=== PATIENT | female | born 1990 | race Native Hawaiian/Other Pacific Islander ===

== ENCOUNTER 2017-06-03 11:46 | Emergency (ER) | payer OTHER ==
[2017-06-03 11:54] VITALS: O2SAT 100
[2017-06-03 12:53] LABS: BASO % 0.5 % (0.0-2.0); EOS # 0.2 K/uL (0.0-0.7); EOS % 2.7 % (0.0-4.0); LYMPH # 1.6 K/uL (1.0-4.3); LYMPH % 20.8 % (20.0-40.0); MEAN CELL VOLUME 96.1 fl (81.0-99.0); MEAN CORPUSCULAR HEMOGLOBIN 32.6 pg (27.0-31.0); MEAN CORPUSCULAR HGB CONC 33.9 g/dL (33.0-37.0); MEAN PLATELET VOLUME 8.1 fl (7.2-11.7); MONO # 0.4 K/uL (0.0-0.8); MONO % 5.2 % (0.0-10.0); NEUT # 5.5 K/uL (1.8-7.0); NEUT % 70.8 % (50.0-75.0); RED CELL DISTRIBUTION WIDTH 12.3 % (11.5-14.5); WHITE BLOOD COUNT 7.8 K/uL (4.8-10.8)
[2017-06-03 13:00] LABS: RBC URINE 3 /hpf (0-3); URINE BACTERIA RARE (<OCC); URINE BILIRUBIN NEGATIVE (NEGATIVE); URINE BLOOD MODERATE (NEGATIVE); URINE COLOR STRAW (YELLOW); URINE GLUCOSE (UA) NEG (Normal); URINE KETONE NEGATIVE (NEGATIVE); URINE LEUKOCYTE ESTERASE MOD Leu/uL (Negative); URINE PROTEIN NEGATIVE (NEGATIVE); URINE UROBILINOGEN 0.2-1.0 mg/dL (0.2-1.0); WBC URINE 4 /hpf (0-5)
[2017-06-03 13:03] LABS: ALB/GLOB RATIO 1.5 (1.0-2.1); ALKALINE PHOSPHATASE 38 U/L (38-126); ALT/SGPT 34 U/L (9-52); AST/SGOT 20 U/L (14-36); BILIRUBIN,TOTAL 0.4 mg/dl (0.2-1.3); BLOOD UREA NITROGEN 9 mg/dl (7-17); CALCIUM 9.1 mg/dL (8.4-10.2); CARBON DIOXIDE 22 mmol/L (22-30); CHLORIDE 105 mmol/L (98-107); GFR AFRICAN-AMERICAN > 60; GLUCOSE,RANDOM 97 mg/dL (65-105); POTASSIUM 3.8 MMOL/L (3.6-5.0); SODIUM 139 mmol/l (132-148); TOTAL PROTEIN 7.9 G/DL (6.3-8.2)
[2017-06-03 13:33] VITALS: RESP 18
--- NOTE | 2017-06-03 15:00 | ED PDOC ---
HPI: Female Pain Time Seen by Provider: 06/03/17 12:41 Chief Complaint (Nursing): Female Genitourinary Chief Complaint (Provider): vaignal bleeding and preg History Per: Patient History/Exam Limitations: no limitations Associated Symptoms: denies: Fever, Chills, Nausea, Vomiting, Diarrhea, Loss Of Appetite, Back Pain, Chest Pain, Constipation, Urinary Symptoms Additional Complaint(s): 27yo F in Ed for eval of vaginal spotting and suprapubic cramping x 1 day .admits she is 5 weeks . no previous Past Medical History Reviewed: Historical Data, Nursing Documentation, Vital Signs Vital Signs: Last Vital Signs Temp 98.7 F 06/03/17 11:54 Pulse 82 06/03/17 13:33 Resp 18 06/03/17 13:33 BP 107/53 L 06/03/17 13:33 Pulse Ox 100 06/03/17 13:33 - Medical History PMH: No Chronic Diseases - Family History Family History: States: No Known Family Hx - Allergies Allergies/Adverse Reactions: Allergies Allergy/AdvReac Type Severity Reaction Status Date / Time No Known Allergies Allergy Verified 06/03/17 12:01 Review of Systems ROS Statement: Except As Marked, All Systems Reviewed And Found Negative Gastrointestinal: Positive for: Abdominal Pain Genitourinary Female: Positive for: Vaginal Bleeding Physical Exam - Reviewed Nursing Documentation Reviewed: Yes Vital Signs Reviewed: Yes - Physical Exam Appears: Positive for: Well, Non-toxic, No Acute Distress Skin: Positive for: Normal Color, Warm, DRY Eye Exam: Positive for: Normal appearance Cardiovascular/Chest: Positive for: Regular Rate, Rhythm Respiratory: Positive for: CNT, Normal Breath Sounds Gastrointestinal/Abdominal: Positive for: Normal Exam, Bowel Sounds, Soft. Negative for: Tenderness Back: Positive for: Normal Inspection Neurologic/Psych: Positive for: Alert, Oriented - Laboratory Results Result Diagrams: 06/03/17 12:30 06/03/17 12:30 - ECG O2 Sat by Pulse Oximetry: 100 - CT Scan/US US Other Rad Studies (CT/US): Radiology Report Reviewed (early IUP-no FHR. ) - Progress ED Course And Treament: pt will be evaluated to r/o ectopic vs miscarriage. Re-evaluation Time: 15:40 Condition: Unchanged - Physician Consult Information Time Consulting Physican Contacted: 15:40 Physician Contacted: Terry Fuentes Outcome Of Conversation: pt to report to office outpt for repeat [facility] Medical Decision Making Medical Decision Making: pt made aware of results will f.u as an outpt Disposition - Clinical Impression Clinical Impression: Threatened in early - Patient ED Disposition Is Patient to be Admitted: No Counseled Patient/Family Regarding: Studies Performed, Diagnosis, Need For Followup - Disposition Disposition: Routine/Home Disposition Time: 15:47 Condition: STABLE Additional Instructions: follow up with your obgyn on Tuesday Instructions: Threatened Miscarriage (ED) Forms: [employer] (Khmer)
--- NOTE | 2017-06-03 15:02 | US ---
PROCEDURE: Obstetrical ultrasound examination HISTORY: pelvic pain and vaginal bleeding COMPARISON: Not available TECHNIQUE: Transabdominal and transvaginal FINDINGS: There is a probable intrauterine gestational sac identified within the uterus. This measures 6 mm in diameter, out of range for determination of age. A questionable yolk sac is identified, 1 mm in diameter. No cardiac activity is detected at this time. There is no subchorionic hemorrhage. The uterus measures 9.1 x 4.4 x 6.1 cm. There is no uterine mass identified. The cervix measures 3.4 cm in length. There is no endocervical fluid. The right ovary measures 1.7 x 2.7 x 2.8 cm. There is no mass. Normal flow is demonstrated. The left ovary measures 2.8 x 2.9 x 3.7 cm. Within the left ovary, there is a cyst measuring 1.4 x 1.5 x 2.0 cm. Normal flow is demonstrated in the left ovary. There is minimal fluid noted in the cul-de-sac and right adnexal region. IMPRESSION: Probable early intrauterine gestation. No cardiac activity detected at this time. Sac diameter is out of range for determination of age. No subchorionic hemorrhage. Follow-up with serial beta HCG and transvaginal pelvic ultrasound is advised.
[2017-06-03 16:17] VITALS: BP 110/68; PULSE 71; TEMP 98
== END 2017-06-03 16:18 | disposition home or self-care (01) ==
LOC: H.ER 11:46
DX: O20.0 Threatened abortion (principal)

== ENCOUNTER 2017-06-19 14:04 | Observation (INO) | payer OTHER ==
--- NOTE | 2017-06-19 14:38 | ED PDOC ---
HPI: General Adult Time Seen by Provider: 06/19/17 14:16 Chief Complaint (Nursing): Female Genitourinary History Per: Patient Additional Complaint(s): Pt. states today she developed vaginal spotting without any pain. She is currently 7 weeks and under the care of Dr. Rizvi. Of note, pt. was here 2 weeks ago for same and was discharged and subsequently f/u with Dr. Rizvi. Denies dysuria, hematuria, vaginal discharge. Past Medical History Reviewed: Historical Data, Nursing Documentation, Vital Signs Vital Signs: Last Vital Signs Temp 99.0 F 06/19/17 14:07 Pulse 113 H 06/19/17 14:07 Resp 20 06/19/17 14:07 BP 121/69 06/19/17 14:07 Pulse Ox 98 06/19/17 17:14 - Family History Family History: States: No Known Family Hx - Home Medications Home Medications: Ambulatory Orders Medication Instructions Recorded Nitrofurantoin Macrocrystals 100 mg PO BID #14 cap 06/03/17 [Macrobid] Nitrofurantoin Macrocrystals 100 mg PO BID #14 cap 06/19/17 [Macrobid] - Allergies Allergies/Adverse Reactions: Allergies Allergy/AdvReac Type Severity Reaction Status Date / Time No Known Allergies Allergy Verified 06/19/17 14:15 Review of Systems ROS Statement: Except As Marked, All Systems Reviewed And Found Negative Genitourinary Female: Positive for: Vaginal Bleeding Physical Exam - Physical Exam Appears: Positive for: Well, Non-toxic, No Acute Distress Skin: Positive for: Normal Color, Warm. Negative for: Rash Eye Exam: Positive for: Normal appearance Gastrointestinal/Abdominal: Positive for: Normal Exam, Soft. Negative for: Tenderness Back: Positive for: Normal Inspection. Negative for: L CVA Tenderness, R CVA Tenderness Extremity: Positive for: Normal ROM Neurologic/Psych: Positive for: Alert, Oriented - Laboratory Results Result Diagrams: 06/19/17 14:50 06/19/17 14:50 Urine POC: Positive Urine dip results: Positive for: Leukocyte Esterase (trace), Ketones (40). Negative for: Blood, Nitrate, Glucose, Bilirubin, Protein - ECG O2 Sat by Pulse Oximetry: 98 - Progress ED Course And Treament: Labs ordered. OB US ordered. Pelvic US: Single intrauterine gestational sac with pole and yolk sac. [place]-rump length is 9 mm consistent with 6 weeks 5 days. cardiac activity is present at 174 beats per minute. Case d/w Dr. Rizvi and states pt. can f/u in his office tomorrow. Pt. informed of results and plan. State she will f/u in his office tomorrow. Disposition - Clinical Impression Clinical Impression: Urinary tract infection, Threatened - Patient ED Disposition Is Patient to be Admitted: No - Disposition Referrals: Terry Fuentes MD [Staff Provider] - Disposition: Routine/Home Disposition Time: 18:11 Condition: STABLE Prescriptions: Nitrofurantoin Macrocrystals [Macrobid] 100 mg PO BID #14 cap Instructions: Urinary Tract Infection in (ED) Forms: [facility] (Kazakh) Print Language: OCCITAN
[2017-06-19 14:57] LABS: BASO % 0.3 % (0.0-2.0); EOS # 0.2 K/uL (0.0-0.7); HEMOGLOBIN 11.6 g/dL (12.0-16.0); LYMPH # 1.1 K/uL (1.0-4.3); LYMPH % 10.7 % (20.0-40.0); MEAN CORPUSCULAR HEMOGLOBIN 32.2 pg (27.0-31.0); MEAN CORPUSCULAR HGB CONC 33.6 g/dL (33.0-37.0); MEAN PLATELET VOLUME 8.2 fl (7.2-11.7); MONO # 0.6 K/uL (0.0-0.8); NEUT # 8.1 K/uL (1.8-7.0); RBC 3.59 Mil/uL (3.80-5.20); RED CELL DISTRIBUTION WIDTH 12.6 % (11.5-14.5)
[2017-06-19 15:07] LABS: ALB/GLOB RATIO 1.4 (1.0-2.1); ALBUMIN 4.2 g/dL (3.5-5.0); ALT/SGPT 29 U/L (9-52); AST/SGOT 23 U/L (14-36); BLOOD UREA NITROGEN 5 mg/dl (7-17); CALCIUM 9.2 mg/dL (8.4-10.2); GFR AFRICAN-AMERICAN > 60; GFR NON-AFRICAN AMERICAN > 60
[2017-06-19 18:28] VITALS: BP 110/68; PULSE 88; RESP 18; TEMP 98; O2SAT 99
--- NOTE | 2017-06-20 10:17 | US ---
PROCEDURE: First trimester ultrasound HISTORY: , vaginal spotting COMPARISON: 06/03/2017. TECHNIQUE: Standard protocol for this study/examination. FINDINGS: LMP: 04/26/2017 Prior examinations from the current : 06/03/2017 TECHNIQUE: Real-time 2D imaging, duplex and color Doppler. FINDINGS: Cardiac activity: Present Rate: 174 BPM Measurements: [place] rump length: 0.93 cm Gestational age based on CRL 7 weeks Gestational age based on gestational sac measurement 6 weeks 3 days. Gestational age derived from LMP: Six weeks 5 days GYPSY based on LMP: 01/31/2018. GYPSY based on biometry: 02/07/2018. Gestational concordance documented Yolk sac identified Uterus: Unremarkable. No Cervical abnormalities: Negative examination for cervical dilatation or effacement. Subchorionic hemorrhage: None ADNEXA: Right: 1.7 x 2.6 x 4.1 cm. Normal Doppler arterial waveform documented. Left: 2.9 x 3.8 x 4.1 cm. Simple cyst 1.8 cm. Normal Doppler arterial waveform documented Fluid in the cul-de-sac: None IMPRESSION: Six weeks 5 days live intrauterine gestation.
== END 2017-06-19 18:28 | disposition home or self-care (01) ==
LOC: H.ER 14:04 → H.EROBSV 14:31 → H.ER 18:28
PROVIDERS: ADMIT Emergency Medicine; ATTEND Emergency Medicine
DX: O75.3 Other infection during labor (principal); Z3A.01 Less than 8 weeks gestation of pregnancy; O20.0 Threatened abortion

== ENCOUNTER 2017-11-03 10:19 | Emergency (ER) | payer OTHER ==
[2017-11-03 10:46] VITALS: BMI 27.9
[2017-11-03] MEDS ORDERED: Lactated Ringer's 1,000 ML IV SCH (11:00)
[2017-11-03 11:13] LABS: SQUAMOUS EPITHIAL 2 /hpf (0-5); URINE BACTERIA OCC (<OCC); URINE BILIRUBIN NEGATIVE (NEGATIVE); URINE BLOOD SMALL (NEGATIVE); URINE CLARITY SLIGHTY-CLOUDY (Clear); URINE COLOR STRAW (YELLOW); URINE GLUCOSE (UA) >=500 mg/dL (Normal); URINE LEUKOCYTE ESTERASE TRACE Leu/uL (Negative); URINE NITRATE NEGATIVE (NEGATIVE); URINE PROTEIN NEGATIVE (NEGATIVE); URINE UROBILINOGEN 0.2-1.0 mg/dL (0.2-1.0)
--- NOTE | 2017-11-03 11:58 | OBHP ---
Datetime: 11/03/2017 11:52 IP Adm Impression: , intrauterine ; No Active Labor IP Admit Plan: Observation/Evaluation; Discharge home Admit Comment, IP Provider: Impression presents labor and delivery estimated due date January 31 estim ated gestational age 27 weeks 2 days patient presents to labor and delivery complaining of partial sp otting percent sure she pushed I's and regular uterine contractions leakage of fluid she reports good movement. Past medical history non- Pressures should not Penicillin care unremarkable social history denies alcohol tobacco use Review of systems patient denies headache chest shortness of breath palpitations nausea vomiting d iarrhea. She's appears musculoskeletal to pledgets Vital signs stable afebrile Physical exam large 1 cm polyp which was It should she 27 weeks vaginal spotting large polyp Patient was discharged follow-up with PMD next week labor precautions provided excellent external monitor UA negative Pelvic Type - PN: Adequate Extremities - PN: Normal Abdomen - PN: Normal Back - PN: Normal Breast - PN: Normal Lungs - PN: Normal Heart - PN: Normal Thyroid - PN: Normal Neurologic - PN: Normal HEENT - PN: Normal General - PN: Normal FHR - Baseline A Provider: 150 EGA AdmitDate IP: 27.2 IP Chief Complaint: Other FHR Category Provider Fetus A: Category I NICHD Decel Fetus A IP Provider: None Genitourinary Exam: Normal DTRs - PN: Normal
[2017-11-04 11:04] VITALS: BP 108/67; PULSE 90
== END 2017-11-03 11:52 | disposition home or self-care (01) ==
LOC: H.EROB2 10:19 → H.L&D 10:19 → H.EROB2 11:52
DX: O26.852 Spotting complicating pregnancy, second trimester (principal); O26.92 Pregnancy related conditions, unspecified, second trimester; N84.2 Polyp of vagina; Z3A.27 27 weeks gestation of pregnancy
CPT/HCPCS: 81003; 99283; J7120